=== PATIENT | male | born 1995 | race Caucasian/White ===

== ENCOUNTER 2018-06-08 09:23 | Emergency (ER) | payer OTHER ==
[2018-06-08 09:33] VITALS: BP 125/78
--- NOTE | 2018-06-08 09:48 | EDPHY ---
General - History Smoking Status: Never smoked Time Seen by Provider: 06/08/18 09:48 Narrative: CLINICAL IMPRESSION: Left knee pain ASSESSMENT/PLAN: Patient is a 23-year-old male with no significant medical history who presents with complaint of left knee pain after sustaining a fall skiing 4 days prior. Patient is nontoxic-appearing, he is in no acute distress on arrival. Knee x- rays reveal no acute bony abnormality, mild effusion and prepatellar swelling. There was no evidence of acute fracture, dislocation, compartment syndrome, Vieira cyst or neurovascular compromise. His history and physical examination is most consistent with left knee pain, concern for possible MCL versus other soft tissue or ligamentous injury. Recommended knee immobilizer however patient declined and would prefer to use his knee brace. He will otherwise continue Tylenol and ibuprofen. Patient is a student at the [employer], he does not have a primary care provider. I have given him a referral for PCP as well as Orthopedic surgery, he will call tomorrow to schedule an appointment with follow-up with Ortho. He understands that he may need additional imaging to include an MRI as well as possible PT. Return precautions discussed-patient to return to the emergency Department for significantly worsening or uncontrolled pain, significant swelling, numbness or tingling of the extremity, fever or for any other concerning symptom. The patient verbalizes understanding and he is in agreement with this plan. DIFFERENTIAL DX: Knee injury while skiing including but not limited to fracture, ACL injury, contusion, muscular strain, and meniscus injury. CHIEF COMPLAINT: Left knee pain HPI: Patient is a 23-year-old male with no significant medical history who presents to the emergency department complaining of left knee pain. Patient reports on he was up skiing in the trees, he went off a jump when ultimately his left knee twisted and he felt a pop. Patient experienced swelling and pain, he has been using compression, ice, ibuprofen and crutches. He does feel that the pain is improving as well as the swelling however wanted to be evaluated for further evaluation. No history of surgery or previous injury to this knee. The patient denies any other injury or complaint. PAST MEDICAL HISTORY: Denies Pertinent Past Surgical History: Denies Family History: Noncontributory Social History: Denies cigarette smoking or illicit drug use ROS: A full 10 point review of systems was negative except for those mentioned in HPI. PHYSICAL EXAM: General Appearance: Well-developed, well-appearing. HENT: Normocephalic, atraumatic. External ears are normal. Nares are clear, mucosa is pink. Oropharynx is clear , dentition is normal. Eyes: PERRLA, EOMI intact. Conjunctiva pink, no pallor or injection. Neck: Supple, nontender, no lymphadenopathy, no midline pain, FROM, no meningismus. Respiratory: There are no retractions, lungs are clear to auscultation. Cardiac: Regular rate and rhythm, no murmurs or gallops. Gastrointestinal: Abdomen is soft, nontender, bowel sounds normal, no masses/ hernia, no rigidity, guarding or focal peritoneal findings. Skin: Warm, dry, no rashes, no nodules on palpation. Upper Extremities: Intact distal pulses, Full range of motion intact, no tenderness, no ecchymosis or edema. Lower Extremities: Right lower extremity unremarkable. Intact distal pulses, No edema, No tenderness, No cyanosis, full range of motion intact. Left lower extremity with generalized edema to the anterior knee. There is no ecchymosis or abrasions. Patient is tender superior medial aspect of the knee, no appreciable laxity here. No anterior posterior laxity. There is no posterior fullness or tenderness to palpation. Thigh compartment is soft and nontender. Dorsalis pedis and posterior tibialis are 2+. No calf tenderness bilaterally. MEDICAL DECISION MAKING: Patient was seen independently. Secondary supervising physician at time of evaluation was Dr. Davenport, he did not evaluate this patient. Diagnosis: Left knee pain. New, requires workup Summary: See Assessment and Plan for summary of ED visit Clinical lab tests: Not applicable. Independent visualization of images, tracing, or specimens: Yes. Decision to obtain medical records or history from someone other than the patient: No Review / Summarize previous medical records: None available Patient Progress: Stable, discharged. (Lidia Daly) Medical Decision Making: I did not see this patient while he was in the emergency department. However his care was discussed with the PA while the patient was in the department. I agree with treatment plan and management (Pedro Davenport) - Diagnostics Imaging Results: Imaging Impressions Knee X-Ray 06/08/18 10:04 Impression: 1. There is no acute osseous abnormality. 2. Mild prepatellar soft tissue swelling and possible trace suprapatellar joint effusion. - Objective Vital Signs: Initial Vital Signs Temperature (C) 36.7 C 06/08/18 09:31 Heart Rate 96 06/08/18 09:31 Respiratory Rate 16 06/08/18 09:31 Blood Pressure 125/78 H 06/08/18 09:31 O2 Sat (%) 97 06/08/18 09:31 O2 Delivery Mode Room Air Allergies/Adverse Reactions: No Known Allergies Allergy (Unverified 06/08/18 09:30) Home Medications: Medication Instructions Recorded NK [No Known Home Meds] 06/08/18 Departure - Departure Disposition: Home, Routine, Self-Care Clinical Impression: Knee pain, acute Qualifiers: Laterality: left Qualified Code(s): M25.562 - Pain in left knee Condition: Good Instructions: Knee Pain (ED) Additional Instructions: DISCHARGE INSTRUCTIONS FROM YOUR DOCTOR Thank you for visiting our emergency department today. Please keep in mind that discharge from the emergency department does not mean that there is nothing wrong - it simply means that we have not identified an emergency condition that requires further evaluation or treatment in the hospital. You should always plan to follow up with primary care for re-evaluation of your condition in the next 2-3 days. If you have been referred to a specialist, please call as soon as possible ( today or tomorrow) to schedule your follow up appointment at the appropriate time; please follow-up with Orthopedic surgery as we discussed. As discussed, you may require further evaluation and/or treatment, ie: an MRI, physical therapy, and/or an orthopedic consultation-- all depending on your healing course. Ice on and off to the affected knee. Elevate as much as possible. Wear the DENISE wrap for compression to help decrease the swelling. Wear your knee immobilizer for the next few days for comfort and support. Limit weightbearing and walking and use your crutches as needed. You can walk and bear weight as tolerated. For pain control: You may take Tylenol, I recommend 500-1000 mg every 6-8 hours as needed. Take with food and a full glass of water. Stop taking if this is upsetting her stomach. Do not exceed 4000 mg in a 24 hr period. You may also take ibuprofen, recommend 400 mg every 6 hr. Take with food and a full glass of water. Stop taking if this upsets her stomach. Do not exceed 2400 mg in a 24 hr period.. Orthopedic injuries you are at increased risk for developing a blood clot in your leg. Be sure to gently stretch your calf on and off throughout the day and seek follow-up care immediately for any calf pain, redness, swellling, ankle swelling, or other concerns. Return for increased or unmanageable pain, new injury, new site of pain, numbness, tingling, weakness of the leg, coolness or discoloration of the leg/ foot/ankle, redness, swelling, fever, difficulty breathing, chest pain, calf pain, ankle swelling, severe headache, back pain, or for any other new, worsening, or worrisome symptoms. People present with illnesses and injuries in different ways, and it is always possible that we have missed something. You may always return for re-evaluation if symptoms worsen or if they are not improving or if you develop new/different symptoms. Again, thank you for choosing our emergency department. We hope that you feel better. Referrals: Radha Coker MD [Medical Doctor] - As per Instructions (Establish care as needed with a primary care provider) Zach Chávez MD [Medical Doctor] - 1-2 days without fail (Please call tomorrow to schedule an appointment for follow-up.)
--- NOTE | 2018-06-08 10:33 | ASMTCAGE ---
CAGE Do you feel you ought to Answers: No cut down on your drinking or drug use? Do people annoy you by Answers: No criticizing your drinking or drug use? Do you feel guilty about Answers: No your drinking or drug use? Do you drink or use drugs Answers: No first thing in the morning ([employer])? Additional Comments See CM notes. Date Signed: 06/08/2018 10:32 AM Electronically Signed By:Sabra Barr RN
--- NOTE | 2018-06-08 10:49 | ASMTCMCOM ---
CM Note CM Note Notes: Reviewed chart. Pt presented to the Emergency Department with left knee pain s/p a fall while skiing 4 days ago. History is unremarkable. Met with pt secondary to a positive SBIRT screening. 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 He occasionally drinks more when he goes out with his friends (usually only on Saturday and Saturday nights). CAGE screening negative. Pt denies the need for resources at this time. CM encouraged pt to monitor his drinking and to consider risks of continued daily use. Pt verbalized understanding. CM available for any further issues or concerns. Date Signed: 06/08/2018 10:48 AM Electronically Signed By:Sabra Barr RN
== END 2018-06-08 11:03 | disposition home or self-care (01) ==
DX: M25.562 Pain in left knee (principal); X50.1XXA Overexertion from prolonged static or awkward postures, initial encounter; Y93.23 Activity, snow (alpine) (downhill) skiing, snowboarding, sledding, tobogganing and snow tubing; Y99.9 Unspecified external cause status; Y92.828 Other wilderness area as the place of occurrence of the external cause